=== PATIENT | male | born 2000 ===

== ENCOUNTER 2022-10-30 14:26 | Outpatient (CLI) | payer OTHER, SELFPAY ==
--- NOTE | ~2022-10-30 | MR_ITS ---
EXAMINATION: MR knee LT wo con DATE: 10/30/2022 15:10 INDICATION: Acute onset left knee pain TECHNIQUE: Magnetic resonance imaging (MRI) of the left knee was performed without intravenous contra st. Sequences included coronal PD-weighted FSE, coronal PD-weighted FS FSE, sagittal T2-weighted FSE , sagittal PD-weighted FS FSE and axial PD weighted fat saturated FSE. COMPARISON: None. FINDINGS: Medial compartment: Medial meniscus is normal. Articular cartilage is normal. Lateral compartment: Lateral meniscus is normal. Articular cartilage is normal. Patellofemoral compartment: Articular cartilage is normal. Ligaments and tendons: Anterior and posterior cruciate ligaments are normal. There is a high-grade, likely complete tear at the junction of the medial patellofemoral retinaculum and the anterior margin of the medial collatera l ligament including partial tear of the anteriormost fibers of the medial collateral ligament. The m ajority of the AP width of the medial collateral ligament remains intact. The fibular collateral liga ment complex is normal. The patellar and quadriceps tendons are normal. The visualized medial and lat eral hamstring tendons as well as the iliotibial band are normal. Fluid: Large left knee joint effusion. No loose osteochondral bodies identified. There is extension of fluid through the patellofemoral retinacular tear which extends into the subcutaneous tissues at the anter omedial and medial aspect of the knee. Surrounding subcutaneous edema extends more diffusely about th e knee and into the distal thigh and proximal calf. Osseous/other: Impaction fracture involving the nonarticular cortex at the lateral side of the lateral trochlea with mild elevation and displacement of a small fragment of the cortex at the site of the fracture there is a second impaction fracture with small minimally displaced fragment along the inferomedial margin of the patella. The fracture extends to the margin of the articular surface with and small amount of immediately adjacent mild chondral swelling. Marrow edema without evident fracture line along the pos terior rim of the medial tibial plateau most likely representing an additional posttraumatic bone con tusion. No pathologic marrow replacing process. IMPRESSION: 1. Patellar dislocation/relocation injury with high-grade likely complete tear along the femoral side of the medial patellofemoral retinaculum and impaction fractures at the inferomedial patella and lat eral nonarticular surface of the lateral trochlea. 2. Associated partial tear along the anterior margin of the medial collateral ligament. The majority of the AP width of the ligament remains intact. 3. Bone contusion along the posterior rim of the medial tibial plateau. 4. Large left knee joint effusion which essentially retinacular tear into the subcutaneous tissues al ursula the anteromedial and medial knee. Reviewed, dictated and finalized at location B. IMPRESSION: 1. Patellar dislocation/relocation injury with high-grade likely complete tear along the femoral side of the medial patellofemoral retinaculum and impaction f ractures at the inferomedial patella and lateral nonarticular surface of the la teral trochlea. 2. Associated partial tear along the anterior margin of the medial collateral l igament. The majority of the AP width of the ligament remains intact. 3. Bone contusion along the posterior rim of the medial tibial plateau. 4. Large left knee joint effusion which essentially retinacular tear into the s ubcutaneous tissues along the anteromedial and medial knee.
== END 2022-10-30 14:27 ==
PROVIDERS: PCP Orthopaedic Surgery; Visit Provider Orthopaedic Surgery
DX: S83.005A Unspecified dislocation of left patella, initial encounter (principal); S83.412A Sprain of medial collateral ligament of left knee, initial encounter; S80.02XA Contusion of left knee, initial encounter; M25.462 Effusion, left knee; X58.XXXA Exposure to other specified factors, initial encounter
CPT/HCPCS: 73721